=== PATIENT | female | born 1970 | race Caucasian/White ===

== ENCOUNTER 2024-10-16 22:52 | Emergency (ER) | payer OTHER, SELFPAY ==
[2024-10-16 22:56] VITALS: BP 107/62
--- NOTE | 2024-10-17 00:44 | ED.GENMED ---
History of Present Illness
General
Chief Complaint: Fall
Source: patient and spouse
Time Seen by Provider: 10/17/24 00:00
History of Present Illness
History of Present Illness:
54-year-old female presents after fall. Patient's spouse states that she fell into her purse on the left chest. Patient reports pain under her left breast rating around toward her back. States it hurts to breathe and she was just concerned she
could have a 'punctured lung'. Patient denies shortness of breath.
Past History
Past History
ED Past Medical History: Hyperthyroidism
ED Past Surgical History: Gynecological (Tubal )
Social History
Tobacco: Smoker
Living: with family
Employment: Employed
Phy Exam
Physical Exam
Physical Exam:
CONSTITUTIONAL Patient alert and oriented to person, place and time. Well-appearing. Vital signs reviewed.
HEAD atraumatic, normocephalic.
EYES eyelids normal to inspection, Extraocular muscles intact, Conjunctiva normal, Sclera normal.
NECK normal range of motion, Trachea midline, no jugular venous distention.
RESPIRATORY CHEST No respiratory distress noted, Chest expansion equal, moderate tenderness to the left chest wall just under the breasts and around toward the back. No crepitus..
ABDOMEN abdomen nontender, Bowel sounds normal. No distention.
BACK normal inspection, no obvious deformities
UPPER EXTREMITY range of motion normal, Motor strength normal, no cyanosis, no edema.
LOWER EXTREMITY range of motion normal, Motor strength normal, no cyanosis, no edema.
NEURO Speech normal, No focal motor deficits, Coleman coma scale 15, Memory normal, Cranial Nerves intact to screening exam.
SKIN skin warm, dry, and normal in color.
Course
Orders/Labs/Results
Orders:
Orders
10/16/24 23:07
Ribs, Left 3 View W/PA Chest CR [CR Ribs-left 3 Vw W/pa Chest] Urgent
Comment:
Reason For Exam: fall
Vital Signs
Initial and Last Documented VS:
Initial Vital Signs
Temp Pulse Resp BP Pulse Ox
97.8 F 83 20 107/62 95
10/16/24 22:56 10/16/24 22:56 10/16/24 22:56 10/16/24 22:56 10/16/24 22:56
Last Documented Vital Signs
Temp Pulse Resp BP Pulse Ox
97.8 F 83 20 107/62 98
10/16/24 22:56 10/16/24 22:56 10/16/24 22:56 10/16/24 22:56 10/16/24 22:56
MDM/Problems Addressed
Differential Diagnosis Includes:
Pneumothorax, rib fracture, flail chest, rib contusion
MDM/Problems Addressed:
Chest wall injury, rib contusion
*Pulse Oximetry
Patient hypoxic: no
*Critical Care Note
Total Time (30-74mins, 75-104mins- exclusive of procedures): Not Applicable
Data Reviewed
Source: patient and spouse
Prescriptions/Medications Considered But Not Given:
Considered NSAIDs but patient states in light of her outpatient medications she was told she cannot take those medications.
Patient Management
Escalation/DeEscalation of care consider admission/obs:
Patient appears well. Pulse ox normal. Chest x-ray grossly unremarkable. Patient provided incentive spirometry. Offered pain medications but patient states she would rather just take Tylenol at home. Do think it is reasonable. Okay for
outpatient follow-up
ED Attending Note
-
Portions of this chart may have been created with voice recognition software.� Occasional wrong word or��sound alike� substitutions may have occurred due to the inherent limitations of voice recognition software.
Discharge Plan
Departure
Patient Disposition: Home (Routine Discharge)
Date of Disposition: 10/17/24
Time of Disposition: 00:44
Patient with high blood pressure during this ER visit?: No
Discharge Problem:
rib contusion vs fracture
Instructions: Rib fracture or bruised rib - ED discharge instructions
Prescriptions:
No Action
hydrocodone-acetaminophen 1 TABLET tablet
1 tab PO Q4HPRN PRN (Reason: Severe pain) Qty: 10 0RF
ibuprofen 600 MG tablet
600 mg PO Q6 Qty: 20 0RF
hydrocodone-acetaminophen 1 TABLET tablet
1 tab PO Q4HPRN PRN (Reason: severe pain) Qty: 10 0RF
Referrals:
Mila Reyna CRNP [Family Provider] -
Activity Restrictions/Additional Instructions:
Please use incentive spirometry 10 times per hour while awake. Return immediately for difficulty breathing, vomiting, abdominal pain or any other concerns. Use Tylenol for pain.
Interventions
Interventions:
*Risk Screen - Suicide Last Done: 10/16/24 22:56
*General Assessment Last Done: 10/16/24 22:56
*Neglect/Abuse Screening Last Done: 10/16/24 22:56
ED- Fall Risk Assessment Last Done: 10/16/24 22:56
*ED COVID-19 Vaccine History Last Done: 10/16/24 22:56
*Nursing Disposition Last Done: 10/17/24 00:54
Discharge Date and Time
Discharge Date/Time: 10/17/24 00:54
Print Language: GREENLANDIC
== END 2024-10-17 00:54 | disposition home or self-care (01) ==
LOC: EMR 22:52
PROVIDERS: EMERGENCY PHYSICIAN Emergency Medicine; FAMILY PHYSICIAN Nurse Practitioner Adult Health
DX: S20.212A Contusion of left front wall of thorax, initial encounter (principal); W19.XXXA Unspecified fall, initial encounter; F17.200 Nicotine dependence, unspecified, uncomplicated
CPT/HCPCS: 99283; 71101

== ENCOUNTER → 2024-12-02 09:31 | Outpatient (REF) | payer OTHER, SELFPAY | LOC: HWWDC 09:31 | PROVIDERS: ATTENDING PHYSICIAN Nurse Practitioner Adult Health | DX: Z12.31 Encounter for screening mammogram for malignant neoplasm of breast (principal) | CPT/HCPCS: 77063; 77067 ==

== ENCOUNTER → 2025-06-02 12:06 | Outpatient (REF) | payer OTHER, SELFPAY | LOC: HWRAD 12:06 | PROVIDERS: ATTENDING PHYSICIAN Nurse Practitioner Adult Health | DX: J22 Unspecified acute lower respiratory infection (principal) | CPT/HCPCS: 71046 ==